=== PATIENT | male | born 1995 | race Caucasian/White ===

== ENCOUNTER 2018-01-26 23:53 | Emergency (ER) | payer SELFPAY ==
[2018-01-27] MEDS ORDERED: 0.9 % SODIUM CHLORIDE 1,000 ML IV ONE (00:15)
[2018-01-27] MEDS ORDERED: ONDANSETRON HCL/PF 4 MG/ 2ML VIAL IVP ONE (00:15)
[2018-01-27 01:09] LABS: MEAN CORPUSCULAR HEMOGLOBIN 29.5 pg (28.0-34.0); MEAN CORPUSCULAR VOLUME 86.2 fl (80.0-100.0)
[2018-01-27 01:14] LABS: eGFR (African) > 60; eGFR (Non-African) > 60
--- NOTE | 2018-01-27 01:34 | ED Physician Documentation ---
General Adult - HISTORIAN Historian: patient - HPI Stated Complaint: BURNETTE/NAUSEA Chief Complaint: General Adult Further Comments: yes (22 year old male patient presents with c/o headache with nausea and vomiting x 3 days; c/o photophobia. 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 Denies history of migraines, reports he has not been taking his meds.) - ROS CONST: no problems EYES/ENT: none CVS/RESP: none GI/: none MS/SKIN/LYMPH: none NEURO/PSYCH: denies: headache - PAST HX Past History: other (anxiety; depression) Other History: none Allergies/Adverse Reactions: Allergies Allergy/AdvReac Type Severity Reaction Status Date / Time No Known Allergies Allergy Verified 10/03/16 20:56 Home Medications: Ambulatory Orders Medication Instructions Recorded Carbamazepine [Tegretol] 200 mg D 10/02/13 Citalopram Hydrobromide [Celexa] 20 mg D 10/02/13 Risperidone [Risperdal] 2 mg PO D 10/02/13 traZODone HCL [Desyrel] 50 mg D 10/02/13 Cimetidine [Heartburn Relief] 200 mg PO DAILY 01/27/18 LORazepam [Ativan] 1 mg PO DAILY PRN 01/27/18 Prazosin HCl [Minipress] 2 mg PO HS 01/27/18 - SOCIAL HX Smoking History: cigarettes - FAMILY HX Family History: No - VITAL SIGNS Vital Signs: Vital Signs Temp Pulse Resp BP Pulse Ox 98.5 F 74 16 143/80 98 01/26/18 23:57 01/26/18 23:57 01/26/18 23:57 01/26/18 23:57 01/26/18 23:57 - REVIEWED ASSESSMENTS Nursing Assessment Reviewed: Yes Vitals Reviewed: Yes Progress - Progress Progress: Patient states he feels better after IV fluids ED Results Lab/Radiology - Lab Results Lab Results: Lab Results 01/27/18 01/27/18 00:20 00:20 WBC 5.00 K/ul K/ul (4.00-12.00) RBC 5.09 M/ul M/ul (3.90-5.20) Hgb 15.0 g/dL g/dL (12.0-18.0) Hct 43.8 % % (37.0-53.0) MCV 86.2 fl fl (80.0-100.0) MCH 29.5 pg pg (28.0-34.0) MCHC 34.2 g/dL g/dL (30.0-36.0) RDW 12.4 % % (11.3-14.3) Sodium 145 mmol/L mmol/L (136-145) Potassium 4.6 mmol/L mmol/L (3.5-5.1) Chloride 103 mmol/L mmol/L (98-107) Carbon Dioxide 27 mmol/L mmol/L (22-30) BUN 16 mg/dL mg/dL (9-20) Creatinine 1.00 mg/dL mg/dL (0.66-1.25) Estimated Creat Clear 128 Est GFR ( Amer) > 60 (60 - ) Est GFR (Non-Af Amer) > 60 (60 - ) Glucose 96 mg/dL mg/dL (74-106) Calcium 9.2 mg/dL mg/dL (8.4-10.2) Total Bilirubin 0.8 mg/dL mg/dL (0.2-1.3) AST 20 U/L U/L (15-46) ALT 30 U/L U/L (13-69) Alkaline Phosphatase 79 U/L U/L (38-126) Total Protein 7.6 g/dL g/dL (6.3-8.2) Albumin 4.5 g/dL g/dL (3.5-5.0) - Orders Orders: ED Orders Category Date Time Status Place IV Lock 1T Care 01/27/18 00:15 Active CBC PLATELETS NO DIFF Stat Lab 01/27/18 00:20 Completed CMP [CMP] Stat Lab 01/27/18 00:20 Completed 0.9 % Sodium Chloride [Normal Saline] 1,000 ml Med 01/27/18 00:15 Discontinued IV Q1H Ondansetron HCl/Pf [Zofran 4 mg/2 ml] Med 01/27/18 00:15 Discontinued 4 mg IVP NOW ONE General Adult Physical Exam - PHYSICAL EXAM GENERAL APPEARANCE: mild distress EENT: eye inspection normal, ENT inspection normal, pharynx normal, no signs of dehydration, EVELYN, no nystagmus, TM's nml RESPIRATORY: no resp distress, chest non-tender, breath sounds normal CVS: reg rate & rhythm, heart sounds normal, equal pulses, no murmur, no gallop , PMI nml, no JVD, no friction rub, 24 ABDOMEN: soft, no organomegaly, normal bowel sounds, no abdominal bruit, no distension SKIN: normal color, warm/dry, NR, INT, PAL, DR EXTREMITIES: non-tender, normal range of motion, no evidence of injury, no edema , J, 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
[2018-01-27 01:40] VITALS: BP 130/68
[2018-01-27 05:51] LABS: APPEARANCE,URINE CLEAR (CLEAR); COLOR,URINE YELLOW (YELLOW); OCCULT BLOOD,URINE NEGATIVE (NEGATIVE); PH URINE 5.5 (5.0 - 8.0); UROBILINOGEN URINE 0.2 Eu (0.2-1.0)
== END 2018-01-27 01:38 | disposition home or self-care (01) ==
LOC: ED 23:53
DX: R51 Headache (principal); R11.0 Nausea
CPT/HCPCS: 80053; 81002; 85027; 96365; 96375; 99282; J2405; J7030; S1016

== ENCOUNTER 2018-03-24 17:32 | Emergency (ER) | payer SELFPAY | END 2018-03-24 17:40 | LOC: ED 17:32 | DX: Z53.21 Procedure and treatment not carried out due to patient leaving prior to being seen by health care provider (principal) | CPT/HCPCS: 99281 ==

== ENCOUNTER 2018-06-14 13:03 | Emergency (ER) | payer SELFPAY ==
--- NOTE | 2018-06-14 13:20 | ED Physician Documentation ---
General Adult - HISTORIAN Historian: patient - HPI Chief Complaint: General Adult Additional Information: 22yo white male who states that he started ot have a panic attack this AM around 10:45 Got himself calmed down then later he went outside to work and he started to have some lighheadedness, dizziness, shortness of breath, nausea. NO vomiting n0ted. No blood in stools. Has not eaten anything today. Went insode and had a BM, was still feeling "off" and came to the ED. IS feeling better at this time. Timing: still present, better Severity: moderate - ROS CONST: no problems. denies: fever, chills - PAST HX Past History: none Allergies/Adverse Reactions: Allergies Allergy/AdvReac Type Severity Reaction Status Date / Time No Known Allergies Allergy Verified 10/03/16 20:56 Home Medications: Ambulatory Orders Medication Instructions Recorded LORazepam [Ativan] 1 mg PO DAILY PRN 01/27/18 - SOCIAL HX Smoking History: greater than 1 pack/day Alcohol Use: none Drug Use: none - FAMILY HX Family History: No - VITAL SIGNS Vital Signs: Vital Signs Temp Pulse Resp BP Pulse Ox 130/68 01/27/18 01:38 General Adult Physical Exam - PHYSICAL EXAM GENERAL APPEARANCE: mild distress EENT: eye inspection normal NECK: normal inspection, thyroid normal, supple RESPIRATORY: no resp distress, chest non-tender, breath sounds normal. No: wheezes, rales, rhonchi CVS: reg rate & rhythm, heart sounds normal, equal pulses, no murmur ABDOMEN: soft, no organomegaly, normal bowel sounds SKIN: warm/dry, other EXTREMITIES: non-tender, no edema, other (some contusion to the posterior calf area bilat, L>R, varicose veins developing in the feet and lower legs bilateral) NEURO: oriented X3, CN's nml as tested, motor nml, sensation nml, mood/affect nml, cognition normal Discharge Clincal Impression: Panic attack Referrals: Primary Doctor,No [Primary Care Provider] - 2 Days Additional Instructions: Advised to go home and rest today. Drink more fluids, (water) Do not go long periods of time without eating. Wear support stocking for varicose veins Condition: Stable Disposition: 01 HOME, SELF-CARE Decision to Admit: NO Date of Decison to Admit: 06/14/18 Decision Time: 14:15
[2018-06-14 13:38] LABS: BASOPHILS % 0.4 (0.0-1.5); EOSINOPHILS % 3.6 % (0.0-6.8); MEAN CORPUSCULAR HEMOGLOBIN 29.6 pg (28.0-34.0); MEAN CORPUSCULAR VOLUME 88.3 fl (80.0-100.0); MONOCYTES % 7.3 % (0.0-11.0); NEUTROPHILS # 2.9 # k/uL (1.4-7.7)
[2018-06-14 13:50] LABS: eGFR (African) > 60; eGFR (Non-African) > 60
[2018-06-14 14:35] VITALS: BP 120/68
== END 2018-06-14 14:22 | disposition home or self-care (01) ==
LOC: ED 13:03
DX: F41.0 Panic disorder [episodic paroxysmal anxiety] (principal)
CPT/HCPCS: 80053; 85025; 99282